=== PATIENT | male | born 1955 | race Caucasian/White ===

== ENCOUNTER 2019-02-13 09:03 | Outpatient (CLI) | payer MEDICARE ==
--- NOTE | 2019-02-13 10:46 | BD ---
DEXA SCAN: DATE: 02/13/2019. PROVIDED CLINICAL HISTORY: Screening. FINDINGS: Lumbar Spine: BMD (g/cm2) L1 0.834 T-Score: -2.2 L2 0.885 T-Score: -1.9 L3 0.999 T-Score: -0.9 L4 1.062 T-Score: -0.3 L1-L4 0.950 T-Score: -1.3 Femoral Neck: 0.495 T-Score: -3.2 Total Femur: 0.733 T-Score: -2 Impression: Calculated bone mineral density meets WHO criteria for osteoporosis in the left femoral neck and plac es the patient at prominent increased risk for fracture. POS: C
== END 2019-02-13 09:04 | disposition home or self-care (01) ==
LOC: BICMAMMO 09:03
PROVIDERS: ATTEND Family Medicine
DX: M81.0 Age-related osteoporosis without current pathological fracture (principal)
CPT/HCPCS: 77080

== ENCOUNTER 2019-03-20 10:18 | Emergency (ER) | payer MEDICARE | END 2019-03-20 10:50 | disposition home or self-care (01) | LOC: SCSER 10:18 | DX: K04.7 Periapical abscess without sinus (principal); I10 Essential (primary) hypertension; Z79.899 Other long term (current) drug therapy | CPT/HCPCS: 99282 ==